=== PATIENT | male | born 1965 | race American Indian/Alaskan Native ===

== ENCOUNTER 2016-08-20 12:53 | Inpatient (IN) | payer MEDICARE, OTHER ==
--- NOTE | 2016-08-20 14:16 | Emergency Department Report ---
Chief Complaint: Pain General Stated Complaint: FLUID ON BOTH LEGS AND FEET Time Seen by Provider: 08/20/16 14:11 - HPI History of Present Illness: 51-year-old male with a past medical history of end-stage renal disease. Patient is hemodialysis on Wednesday and Wednesday. Patient went to dialysis had a full hemodialysis today without complaint was seen by the Dr. Jones today and was told to come to the ER after dialysis secondary for fluid on both legs and feet. Patient denies any pain or chest pain though he does admit to some shortness of breathing. He reports he is on nifedipine extended release 30 mg Sensipar. He reports that his weight this morning was 264 which is up by 4 pounds that he can recall. - Exam Vital Signs: Vital Signs 08/20/16 13:10 Temperature 98.2 F Pulse Rate 100 H Respiratory 22 Rate Blood Pressure 156/87 O2 Sat by Pulse 98 Oximetry Physical Exam: Patient's alert and oriented, he is in no acute distress he is tachycardic bilateral lower leg edema 3+ no tenderness to palpate respiratory clear to auscultation bilateral MSE screening note: Focused history and physical exam performed. Due to findings the following was ordered: CBC CMP PT PTT chest x-ray ordered ED Disposition for MSE Condition: Stable
[2016-08-20 14:35] LABS: Hematocrit 34.4 % (35.5-45.6); Hemoglobin 10.7 gm/dl (11.8-15.2); Mean Corpuscular HGB Conc 31 % (32-34); Mean Corpuscular Hemoglobin 24 pg (28-32); Mean Corpuscular Volume 77 fl (84-94); Platelet Count 164 K/mm3 (140-440); Red Blood Count 4.44 M/mm3 (3.65-5.03); Red Cell Distribution Width 18.5 % (13.2-15.2); White Blood Count 6.6 K/mm3 (4.5-11.0)
[2016-08-20 14:45] LABS: INR 1.24 (0.87-1.13)
[2016-08-20 14:46] LABS: Partial Thromboplastin Time 33.8 Sec. (24.2-36.6)
[2016-08-20 15:00] LABS: Albumin 3.5 g/dL (3.9-5); Albumin/Globulin Ratio 1.1 %; BUN/Creatinine Ratio 3.52; Bilirubin,Total 0.7 mg/dL (0.1-1.2); Calcium 8.9 mg/dL (8.4-10.2); Total Protein 6.8 g/dL (6.3-8.2)
[2016-08-20 15:01] LABS: Chloride 96.8 mmol/L (98-107); Potassium 4.3 mmol/L (3.6-5.0)
--- NOTE | 2016-08-20 15:46 | XRay Report ---
PA and lateral chest: The lungs are hypoventilated. The heart is probably normal in size considering the poor degree of inspiratory effort. There is mild blunting at the right costophrenic angle. The right major fissure is slightly thickened. There is some question concerning mild vascular congestion. I have no prior study for comparison. Impression: The findings raise suspicion of mild congestive changes and possible small right effusion or atelectasis.
--- NOTE | 2016-08-20 21:05 | Emergency Department Report ---
ED General Adult HPI - General Chief complaint: Pain General Stated complaint: FLUID ON BOTH LEGS AND FEET Time Seen by Provider: 08/20/16 14:11 Source: patient Mode of arrival: Ambulatory Limitations: No Limitations - History of Present Illness Initial comments: Patient is a 51-year-old male with history of hypertension, diabetes, end-stage renal disease on dialysis Wednesday with last dialysis earlier today sent in by his manager transmission Dr. Nixon because patient has bilateral lower extremity edema 2 days. Patient has never had these symptoms in the past. Has occasional shortness of breath but denies any orthopnea or chest pain. Denies any leg pain to either leg. Severity scale (0 -10): 4 - Related Data Home Medications Medication Instructions Recorded Confirmed Last Taken NIFEdipine [Nifedipine ER] 30 mg PO QDAY 08/20/16 08/20/16 08/20/16 Sevelamer Carbonate [Renvela] 800 mg PO TIDWM 08/20/16 08/20/16 08/20/16 Allergies Allergy/AdvReac Type Severity Reaction Status Date / Time No Known Allergies Allergy Verified 01/09/14 08:02 ED Review of Systems ROS: Stated complaint: FLUID ON BOTH LEGS AND FEET Other details as noted in HPI Comment: All other systems reviewed and negative Constitutional: denies: fever, weakness Respiratory: shortness of breath, SOB with exertion. denies: cough Cardiovascular: denies: chest pain, palpitations Gastrointestinal: denies: abdominal pain Skin: denies: rash Neurological: denies: headache Psychiatric: denies: anxiety ED Past Medical Hx - Past Medical History Previous Medical History?: Yes Hx Hypertension: Yes Hx Heart Attack/AMI: No Hx Diabetes: Yes (hx diabetes - not currently) Hx Liver Disease: No Hx Renal Disease: Yes Hx Sickle Cell Disease: No Hx Seizures: No Hx Asthma: No Hx COPD: No Hx Dementia: No Hx HIV: No - Surgical History Past Surgical History?: Yes Hx Pacemaker: No Hx Internal Defibrillator: No Additional Surgical History: Right arm fistula - Social History Smoking Status: Never Smoker Substance Use Type: Prescribed - Medications Home Medications: Home Medications Medication Instructions Recorded Confirmed Last Taken Type NIFEdipine [Nifedipine ER] 30 mg PO QDAY 08/20/16 08/20/16 08/20/16 History Sevelamer Carbonate [Renvela] 800 mg PO TIDWM 08/20/16 08/20/16 08/20/16 History ED Physical Exam - General Limitations: No Limitations General appearance: alert - Head Head exam: Present: atraumatic - Eye Eye exam: Present: normal appearance - ENT ENT exam: Present: normal exam - Respiratory Respiratory exam: Present: normal lung sounds bilaterally. Absent: respiratory distress - Cardiovascular Cardiovascular Exam: Present: regular rate, normal heart sounds - GI/Abdominal GI/Abdominal exam: Present: soft. Absent: distended, tenderness - Extremities Exam Extremities exam: Present: pedal edema - Neurological Exam Neurological exam: Present: altered, oriented X3 - Psychiatric Psychiatric exam: Present: normal affect ED Course Vital Signs 08/20/16 08/20/16 08/20/16 13:10 17:05 18:10 Temperature 98.2 F 98.6 F Pulse Rate 100 H 90 Respiratory 22 16 Rate Blood Pressure 156/87 151/95 156/87 Blood Pressure [Left] O2 Sat by Pulse 98 98 Oximetry 08/20/16 08/20/16 08/20/16 18:13 19:01 19:14 Temperature Pulse Rate 95 H 93 H Respiratory 18 19 Rate Blood Pressure 133/72 133/72 Blood Pressure 156/87 [Left] O2 Sat by Pulse 95 Oximetry 08/20/16 08/20/16 08/20/16 20:00 20:30 21:00 Temperature Pulse Rate 88 91 H Respiratory 15 12 Rate Blood Pressure 137/81 137/81 145/90 Blood Pressure [Left] O2 Sat by Pulse Oximetry 08/20/16 08/20/16 08/20/16 21:30 22:00 22:30 Temperature Pulse Rate 90 93 H 92 H Respiratory 12 12 25 H Rate Blood Pressure 137/81 137/81 146/92 Blood Pressure [Left] O2 Sat by Pulse Oximetry 08/20/16 08/20/16 08/21/16 23:00 23:40 00:00 Temperature Pulse Rate 90 101 H 96 H Respiratory 19 18 17 Rate Blood Pressure 145/83 145/83 161/119 Blood Pressure [Left] O2 Sat by Pulse Oximetry 08/21/16 08/21/16 00:31 01:30 Temperature 98 F Pulse Rate 93 H 85 Respiratory 25 H 18 Rate Blood Pressure 145/83 Blood Pressure 145/83 [Left] O2 Sat by Pulse 98 Oximetry - Reevaluation(s) Reevaluation #1: 08/20/16 21:[address] Nixon about the patient. Per Dr. Nixon patient's phosphorus is low, he was unwilling to be dialyzed enough to remove the significant amount of fluid and he is concerned that he has developed heart failure. He recommends admitting the patient to the hospital for further evaluation. ED Medical Decision Making - Lab Data Result diagrams: 08/20/16 14:21 08/20/16 14:21 - Medical Decision Making Possible new onset CHF labs, CXR preordered labs show elevated bnp, troponin added troponin mildly positive, may be due to CHF or renal failure (no prior results) or nstemi. ekg shows nsr without st-changes Critical care attestation.: If time is entered above; I have spent that time in minutes in the direct care of this critically ill patient, excluding procedure time. ED Disposition Clinical Impression: ESRD (end stage renal disease) CHF (congestive heart failure) Qualifiers: Congestive heart failure type: unspecified congestive heart failure type Congestive heart failure chronicity: acute Qualified Code(s): I50.9 - Heart failure, unspecified Disposition: OP ADMITTED IP TO THIS HOSP Is pt being admited?: Yes Does the pt Need Aspirin: No Condition: Serious Time of Disposition: 23:04 (Transitioned care to Dr. Deluna)
[2016-08-20] MEDS ORDERED: BABY ASPIRIN PO ONE (22:05)
--- NOTE | 2016-08-21 00:18 | History and Physical Report ---
History of Present Illness Date of examination: 08/21/16 History of present illness: 51-year-old man with a history of end-stage renal disease on dialysis Wednesday, , Wednesday, hypertension diabetes comes emergency room with complaints of increasing lower extremity edema and shortness of breath, dyspnea on exertion no PND or orthopnea Patient denies chest pain, palpitation, cough, abdominal pain, hematochezia, dysuria, frequency, focal weakness, dysarthria, fever chills, polydipsia polyuria, hot or cold intolerance, easy bruisability, or rash or bleeding from mucosal membrane, rhinorrhea, epistaxis, earache, tinnitus, blurry vision, eye discharge, anxiety, depression. Other review of systems negative PAST SURGICAL HISTORY: AV fistula SOCIAL HISTORY: Denies alcohol, tobacco, drugs FAMILY HISTORY: Hypertension Medications and Allergies Allergies Allergy/AdvReac Type Severity Reaction Status Date / Time No Known Allergies Allergy Verified 01/09/14 08:02 Home Medications Medication Instructions Recorded Confirmed Last Taken Type NIFEdipine [Nifedipine ER] 30 mg PO QDAY 08/20/16 08/20/16 08/20/16 History Sevelamer Carbonate [Renvela] 800 mg PO TIDWM 08/20/16 08/20/16 08/20/16 History Active Meds: Active Medications Nifedipine (Procardia Xl) 30 mg PO QDAY ABIGAIL Sevelamer Carbonate (Renvela) 800 mg PO TIDWM [facility] Exam - Physical Exam Narrative exam: Gen. appearance: Patient lying in bed, no apparent distress HEENT: Normocephalic, atraumatic, pupils equally round and reactive to light, extraocular movement intact, and no sclericterus,. No JVD or thyromegaly or nodule,neck supple, no carotid bruit ,mucous membranes moist, no exudate or erythema Heart: S1, S2, regular rate and rhythm Lungs: Clear to auscultation bilaterally, breathing comfortable Abdomen: Positive bowel sounds, nontender, nondistended, no organomegaly Extremity:3+ edema, no cyanosis, clubbing Skin: No rash, nodules, warm, dry Neuro: Oriented 3, cranial nerves II-12 intact, speech is fluent, motor and sensory intact - Constitutional Vitals: Temp Pulse Resp BP Pulse Ox 98.6 F 93 H 19 133/72 95 08/20/16 17:05 08/20/16 19:14 08/20/16 19:14 08/20/16 19:14 08/20/16 18:13 Results - Labs CBC & Chem 7: 08/20/16 14:21 08/20/16 14:21 Labs: Abnormal lab results 08/20/16 08/20/16 08/20/16 Range/Units 14:21 14:21 14:21 Hgb 10.7 L (11.8-15.2) gm/dl Hct 34.4 L (35.5-45.6) % MCV 77 L (84-94) fl MCH 24 L (28-32) pg MCHC 31 L (32-34) % RDW 18.5 H (13.2-15.2) % PT 15.5 H (12.2-14.9) Sec. INR 1.24 H (0.87-1.13) Chloride 96.8 L (98-107) mmol/L Carbon Dioxide 32 H (22-30) mmol/L BUN 25 H (9-20) mg/dL Creatinine 7.1 H (0.8-1.5) mg/dL Glucose 108 H (75-100) mg/dL Troponin T (0.00-0.029) ng/mL NT-Pro-B Natriuret Pep 2322 H (0-900) pg/mL Albumin 3.5 L (3.9-5) g/dL 08/20/16 Range/Units 21:09 Hgb (11.8-15.2) gm/dl Hct (35.5-45.6) % MCV (84-94) fl MCH (28-32) pg MCHC (32-34) % RDW (13.2-15.2) % PT (12.2-14.9) Sec. INR (0.87-1.13) Chloride (98-107) mmol/L Carbon Dioxide (22-30) mmol/L BUN (9-20) mg/dL Creatinine (0.8-1.5) mg/dL Glucose (75-100) mg/dL Troponin T 0.108 H* (0.00-0.029) ng/mL NT-Pro-B Natriuret Pep (0-900) pg/mL Albumin (3.9-5) g/dL - Imaging and Cardiology EKG: image reviewed ([id number],[id number], read by me) Chest x-ray: image reviewed Assessment and Plan Sit CHF, probably diastolic dysfunction Hypertension Diabetes of 2 End-stage renal disease on dialysis Admits medicine Start IV Lasix, start beta mikki, JULIETH inhibitor, aspirin Check cardiac enzymes, echo, consult cardiology Monitor I's and O's, daily weights Consult renal for dialysis Check fingersticks initiate insulin sliding scale Continue outpatient medication, start DVT prophylaxis
--- NOTE | 2016-08-21 01:39 | Admit Criteria Form ---
Admission Criteria Documentation: HEART FAILURE: OBSERVATION CARE USE THIS FORM ONLY WHEN INPATIENT ADMISSION CRITERIA ARE NOT MET. (Place "X" for any and all applicable criteria): Placement for observation care is indicated for a patient with ANY ONE of the following (1)(2)(3)(4)(5)(6) [X ]I. Signs or symptoms inadequately controlled by outpatient or emergency department treatment as indicated by persistence of ANY ONE of the following: [ ]a) Pulmonary edema [ ]b) Oxygen saturation less than 90% on room air or baseline supplemental oxygen [ ]c) Tachypnea [ X]d) Dyspnea [ ]e) Syncope [ ]f) Cognitive impairment (new) [ ]II. Change in renal function (reduction of more than 25% in estimated glomerular filtration rate from baseline) [ ]III. New-onset acute heart failure for which immediate outpatient etiologic examination is needed that cannot be done in required time frame [ ]IV. Other observation care needs. ( Also refer to General Criteria: Observation Care Form as appropriate) The original [employer] content created by [employer] has been revised. The portions of the content which have been revised are identified through the use of italic text, and [facility] has neither reviewed nor approved the modified material. All other unmodified content is copyright [facility]. Please see references footnoted in the original [facility] [employer] edition 2015 Admission Criteria Met: Pending
[2016-08-21] MEDS ORDERED: AMBIEN PO PRN (02:02)
[2016-08-21] MEDS ORDERED: PERCOCET 5/325 PO PRN (02:02)
[2016-08-21] MEDS ORDERED: DULCOLAX PR PRN (02:02)
[2016-08-21] MEDS ORDERED: TYLENOL PO PRN (02:02)
[2016-08-21] MEDS ORDERED: D50W (25GM) IV PRN (02:02)
[2016-08-21] MEDS ORDERED: ZOFRAN IV PRN (02:02)
--- NOTE | 2016-08-21 06:05 | Admit Criteria Form ---
Admission Criteria Documentation: HEART FAILURE: COMMON COMPLICATIONS Clinical Indications for Inpatient Care (Place 'X' for any and all applicable criteria): Ongoing inpatient care may be indicated for heart failure with ANY ONE of the following (1)(2)(3)(4)(5): [ ]I. Ongoing need for care for primary condition requiring frequent therapy adjustments because of changes in cardiac function (eg, drug dosage changes for drugs that are renally metabolized) [ ]II. New-onset heart failure [ ]III. Heart failure with decreased urine output not responsive to attempts to optimize volume status [ ]IV. Acute cardiac ischemia causing or associated with failure [X ]V. Complications of heart failure, including ANY ONE of the following: [ ]a) Pericardial effusion [ ]b) Symptomatic pleural effusion [ ]c) O2 saturation <90% or PO2 < 60 mm Hg (8.0 kPa) on room air or require baseline supplemental O2 [ ]d) Tachypnea [X ]e) Dyspnea [ ]f) Syncope [ ]g) Change in mental status [ ]h) Acute renal insufficiency that is severe (reduction of more than 50% in estimated glomerular filtration rate from baseline) or progressive reduction of more than 25% in estimated glomerular filtration rate from baseline, with creatinine continuing to rise) [ ]i) Hemodynamic instability [ ]j) Anasarca [ ]k) Clinically significant metabolic abnormalities due to heart failure (eg, new-onset metabolic acidosis) Extended stay beyond goal length of stay for primary condition may be needed until ALL of the following are present(1)(3): [ ]a) Stable and effective diuretic regimen established (or patient on stable dialysis regimen if in chronic renal failure) [ ]b) Breathing comfortably at rest [ ]c) Saturation of arterial oxygen greater than 90% or at acceptable baseline [ ]d) Pulmonary edema absent or improved [ ]e) Hemodynamic stability [ ]f) Volume status acceptable on oral medication [ ]g) Peripheral or sacral edema absent or improved [ ]h) Renal function stable and manageable at a lower level of care [ ]i) Complications (eg, pleural effusion) resolved or manageable at a lower level of care [ ]j) Patient or caregiver has received written discharge instructions or educational material addressing activity level, diet, discharge medications, follow-up appointment, weight monitoring, and what to do if symptoms worsen The original [facility] content created by [employer] has been revised. The portions of the content which have been revised are identified through the use of italic text or in bold, and [facility] has neither reviewed nor approved the modified material.All other unmodified content is copyright [facility]. Please see references footnoted in the original [facility] edition 2016 Admission Criteria Met: Yes
[2016-08-21] MEDS: LASIX IV SCH ×2 (06:08→17:51)
[2016-08-21 06:55] LABS: Creatine Kinase MB 2.4 ng/mL (0.0-4.0)
[2016-08-21] MEDS: RENVELA PO SCH ×3 (08:48→16:42)
[2016-08-21] MEDS: LOVENOX SUB-Q SCH (09:14)
[2016-08-21] MEDS: ZESTRIL PO SCH (09:15)
[2016-08-21] MEDS: BABY ASPIRIN PO SCH (09:15)
[2016-08-21] MEDS: COREG PO SCH ×2 (09:15→21:37)
[2016-08-21] MEDS: NOVOLOG SUB-Q SCH ×4 (09:17→21:38)
--- NOTE | 2016-08-21 09:31 | Consultation ---
History of Present Illness - Reason for Consult Consult date: 08/21/16 (consult dictated) Medications and Allergies Allergies Allergy/AdvReac Type Severity Reaction Status Date / Time No Known Allergies Allergy Verified 01/09/14 08:02 Home Medications Medication Instructions Recorded Confirmed Last Taken Type NIFEdipine [Nifedipine ER] 30 mg PO QDAY 08/20/16 08/20/16 08/20/16 History Sevelamer Carbonate [Renvela] 800 mg PO TIDWM 08/20/16 08/20/16 08/20/16 History Active Meds: Active Medications Acetaminophen (Tylenol) 650 mg PO Q4H PRN PRN Reason: Pain MILD(1-3)/Fever >100.5/ROJAS Aspirin (Baby Aspirin) 81 mg PO QDAY [facility] Last Admin: 08/21/16 09:15 Dose: 81 mg Bisacodyl (Dulcolax) 10 mg SD QDAY PRN PRN Reason: Constipation unrelieved by MOM Carvedilol (Coreg) 3.125 mg PO BID [facility] Last Admin: 08/21/16 09:15 Dose: 3.125 mg Dextrose (D50w (25gm)) 50 ml IV PRN PRN PRN Reason: Hypoglycemia Enoxaparin Sodium (Lovenox) 30 mg SUB-Q QDAY [facility] Last Admin: 08/21/16 09:14 Dose: 30 mg Furosemide (Lasix) 40 mg IV BID@0600,1800 [facility] Last Admin: 08/21/16 06:08 Dose: 40 mg Insulin Aspart (Novolog) 0 units SUB-Q ACHS [facility] PRN Reason: Protocol Last Admin: 08/21/16 09:17 Dose: Not Given Lisinopril (Zestril) 2.5 mg PO QDAY [facility] Last Admin: 08/21/16 09:15 Dose: 2.5 mg Ondansetron HCl (Zofran) 4 mg IV Q8H PRN PRN Reason: N/V unrelieved by Reglan Oxycodone/Acetaminophen (Percocet 5/325) 1 tab PO Q6H PRN PRN Reason: Pain, Moderate (4-6) Sevelamer Carbonate (Renvela) 800 mg PO TIDWM [facility] Last Admin: 08/21/16 08:48 Dose: 800 mg Zolpidem Tartrate (Ambien) 5 mg PO QHS PRN PRN Reason: Insomnia Exam - Constitutional Vitals: Temp Pulse Resp BP Pulse Ox 98.7 F 91 H 18 161/94 100 08/21/16 08:28 08/21/16 09:15 08/21/16 08:28 08/21/16 09:15 08/21/16 08:28 Results - Labs CBC & Chem 7: 08/20/16 14:21 08/20/16 14:21 Labs: Abnormal lab results 08/21/16 Range/Units 05:20 Total Creatine Kinase 274 H (55-170) units/L Troponin T 0.101 H* (0.00-0.029) ng/mL
[2016-08-21] MEDS ORDERED: PROCARDIA XL PO SCH (10:00)
[2016-08-21] MEDS ORDERED: HEPARIN IV PRN (11:14)
[2016-08-21] MEDS ORDERED: NACL 0.9% 1000 ML 100 ML IV PRN ×2 (11:14→11:21)
--- NOTE | 2016-08-21 11:31 | Consultation ---
History of Present Illness Consult date: 08/21/16 Consult reason: congestive heart failure History of present illness: Patient is a 51yr old male with a history of hypertension, end stage renal disease on hemodialysis who presented to this hospital with complaints of shortness of breath and lower extremity edema. Patient reports shortness of breath had been intermittent for a few weeks but noted lower extremity edema 2 days ago. Admits to compliance with hemodialysis. He denies chest pain. There is no prior cardiac history or prior workup. Chest x-ray reports mild vascular congestion. Cardiac consultation requested for CHF evaluation. Medications and Allergies Allergies Allergy/AdvReac Type Severity Reaction Status Date / Time No Known Allergies Allergy Verified 01/09/14 08:02 Home Medications Medication Instructions Recorded Confirmed Last Taken Type NIFEdipine [Nifedipine ER] 30 mg PO QDAY 08/20/16 08/20/16 08/20/16 History Sevelamer Carbonate [Renvela] 800 mg PO TIDWM 08/20/16 08/20/16 08/20/16 History Active Meds: Active Medications Acetaminophen (Tylenol) 650 mg PO Q4H PRN PRN Reason: Pain MILD(1-3)/Fever >100.5/ROJAS Aspirin (Baby Aspirin) 81 mg PO QDAY [facility] Last Admin: 08/21/16 09:15 Dose: 81 mg Bisacodyl (Dulcolax) 10 mg IN QDAY PRN PRN Reason: Constipation unrelieved by MOM Carvedilol (Coreg) 3.125 mg PO BID [facility] Last Admin: 08/21/16 09:15 Dose: 3.125 mg Dextrose (D50w (25gm)) 50 ml IV PRN PRN PRN Reason: Hypoglycemia Enoxaparin Sodium (Lovenox) 30 mg SUB-Q QDAY [facility] Last Admin: 08/21/16 09:14 Dose: 30 mg Furosemide (Lasix) 40 mg IV BID@0600,1800 [facility] Last Admin: 08/21/16 06:08 Dose: 40 mg Heparin Sodium (Porcine) (Heparin) 5,000 unit IV TOMMIE PRN PRN Reason: hemodialysis Sodium Chloride (Nacl 0.9% 1000 Ml) 100 mls @ 999 mls/hr IV TOMMIE PRN PRN Reason: Hypotension Sodium Chloride (Nacl 0.9% 1000 Ml) 100 mls @ 999 mls/hr IV TOMMIE PRN PRN Reason: Hypotension Insulin Aspart (Novolog) 0 units SUB-Q ACHS [facility] PRN Reason: Protocol Last Admin: 08/21/16 09:17 Dose: Not Given Lisinopril (Zestril) 2.5 mg PO QDAY [facility] Last Admin: 08/21/16 09:15 Dose: 2.5 mg Ondansetron HCl (Zofran) 4 mg IV Q8H PRN PRN Reason: N/V unrelieved by Reglan Oxycodone/Acetaminophen (Percocet 5/325) 1 tab PO Q6H PRN PRN Reason: Pain, Moderate (4-6) Sevelamer Carbonate (Renvela) 800 mg PO TIDWM [facility] Last Admin: 08/21/16 08:48 Dose: 800 mg Zolpidem Tartrate (Ambien) 5 mg PO QHS PRN PRN Reason: Insomnia Physical Examination Vital Signs Temp Pulse Resp BP Pulse Ox 98.2 F 100 H 22 156/87 98 08/20/16 13:10 08/20/16 13:10 08/20/16 13:10 08/20/16 13:10 08/20/16 13:10 General appearance: no acute distress HEENT: Positive: PERRL Neck: Positive: trachea midline Cardiac: Positive: Reg Rate and Rhythm Lungs: Positive: Decreased Breath Sounds Neuro: Positive: Grossly Intact Extremities: Present: +2 Edema Results 08/20/16 14:21 08/20/16 14:21 Cardiac Enzymes 08/21/16 Range/Units 05:20 CK-MB (CK-2) 2.4 (0.0-4.0) ng/mL EKG interpretations - Telemetry EKG Rhythm: Sinus Rhythm Assessment and Plan Volume overload ESRD on HD Hypertension Will get an echocardiogram for LVEF assessment. Continue HD for volume removal.
--- NOTE | 2016-08-21 12:06 | Progress Note ---
Assessment and Plan 1. Congestive heart failure: Echo pending. Continue with IV Lasix, beta mikki and johanna inhibitor. 2. Hypertension: Continue with antihypertensive meds. 3. Diabetes mellitus: Continue with Accu-Chek every before meals and at bedtime , sliding scale insulin, 2000 ADA diet 4. End-stage renal disease on hemodialysis. 5. DVT prophylaxis: Continue with Lovenox 40 mg subcutaneous daily Subjective Date of service: 08/21/16 Interval history: SOB improving. Objective - Constitutional Vitals: Vital Signs - 12hr 08/21/16 08/21/16 08/21/16 00:31 01:30 03:16 Temperature 98 F 98.2 F Pulse Rate 93 H 85 Pulse Rate [ Left] Pulse Rate [ 97 H Right] Respiratory 25 H 18 18 Rate Blood Pressure 145/83 Blood Pressure [Left Arm] Blood Pressure 145/83 [Left] Blood Pressure 168/91 [Right Arm] O2 Sat by Pulse 98 100 Oximetry 08/21/16 08/21/16 08/21/16 04:00 08:28 09:15 Temperature 98.3 F 98.7 F Pulse Rate 91 H Pulse Rate [ 91 H Left] Pulse Rate [ 92 H Right] Respiratory 18 18 Rate Blood Pressure 161/94 Blood Pressure 161/94 [Left Arm] Blood Pressure [Left] Blood Pressure 161/87 [Right Arm] O2 Sat by Pulse 98 100 Oximetry 08/21/16 10:00 Temperature Pulse Rate Pulse Rate [ 92 H Left] Pulse Rate [ Right] Respiratory Rate Blood Pressure Blood Pressure [Left Arm] Blood Pressure [Left] Blood Pressure [Right Arm] O2 Sat by Pulse Oximetry General appearance: Present: no acute distress, well-nourished - EENT Eyes: PERRL, EOM intact ENT: hearing intact, clear oral mucosa Ears: bilateral: normal - Neck Neck: supple, normal ROM - Respiratory Respiratory effort: normal Respiratory: bilateral: CTA - Breasts Breasts: normal - Cardiovascular Rhythm: regular Heart Sounds: Present: S1 & S2. Absent: gallop, rub Extremities: pulses intact, No edema, normal color, Full ROM - Gastrointestinal General gastrointestinal: Present: soft, non-tender, non-distended, normal bowel sounds - Genitourinary Male genitourinary: normal - Integumentary Integumentary: clear, warm, dry - Musculoskeletal Musculoskeletal: 1, strength equal bilaterally - Neurologic Neurologic: moves all extremities - Psychiatric Psychiatric: memory intact, appropriate mood/affect, intact judgment & insight - Labs CBC & Chem 7: 08/20/16 14:21 08/20/16 14:21 Labs: Abnormal lab results 08/21/16 Range/Units 05:20 Total Creatine Kinase 274 H (55-170) units/L Troponin T 0.101 H* (0.00-0.029) ng/mL
--- NOTE | 2016-08-21 12:49 | Echocardiography Report ---
Transthoracic Echocardiogram BP: 161/87 Conclusions *The left ventricular chamber size is mildly dilated. *Mild concentric left ventricular hypertrophy is observed. *Severe global hypokinesis of the left ventricle is observed. *The estimated ejection fraction is 20-25%. *The left ventricular diastolic filling pattern is restrictive. *The left atrium is severely dilated. *The right ventricle is mildly dilated. *The right atrium is moderately dilated. *Mild aortic cusp sclerosis is present. *Mitral valve leaflet mobility is moderately restricted. *There is moderate to severe mitral regurgitation. *The mitral regurgitant jet is posteriorly directed. *There is moderate to severe tricuspid regurgitation. *The tricuspid regurgitant jet is eccentric. *The right ventricular systolic pressure is calculated at 53 mmHg. *There is mild pulmonic regurgitation. *The inferior vena cava is dilated. Findings Left Ventricle: The left ventricular chamber size is mildly dilated. Mild concentric left ventricular hypertrophy is observed. Severe global hypokinesis of the left ventricle is observed. The estimated ejection fraction is 20-25%. The left ventricular diastolic filling pattern is restrictive. Left Atrium: The left atrium is severely dilated. Right Ventricle: The right ventricle is mildly dilated. The right ventricular global systolic function is normal. Right Atrium: The right atrium is moderately dilated. Aortic Valve: Mild aortic cusp sclerosis is present. There is no evidence of aortic regurgitation. There is no evidence of aortic stenosis. Mitral Valve: Mitral valve leaflet mobility is moderately restricted. There is moderate to severe mitral regurgitation. The mitral regurgitant jet is posteriorly directed. Tricuspid Valve: There is moderate to severe tricuspid regurgitation. The tricuspid regurgitant jet is eccentric. The right ventricular systolic pressure is calculated at 53 mmHg. There is evidence of moderate pulmonary hypertension. Pulmonic Valve: There is mild pulmonic regurgitation. Pericardium: There is no pericardial effusion. Aorta: There is no dilatation of the aortic root. Pulmonary Artery: The main pulmonary artery is mildly dilated. Venous: The inferior vena cava is dilated. Measurements Chambers MM Name Value Normal Range IVSd (MM) 1.13 cm (0.6 - 1.1) LVPWd (MM) 1.15 cm (0.6 - 1.1) IVS:LVPW ratio 0.98 ratio - LVIDd (MM) 5.81 cm (3.7 - 5.6) LVIDs (MM) 5.06 cm (2 - 2.8) LV FS (Teichholz) (MM) 12.9 % - LV FS (cube) (MM) 12.9 % - EF Teichholz (MM) 26.9 % - Ao root diameter (MM) 3.4 cm (2 - 3.7) LA dimension (AP) MM 5.4 cm (1.9 - 4) LA:Ao ratio (MM) 1.59 ratio - AV cusp separation (MM) 2.4 cm (1.5 - 2.6) Chambers 2D Name Value Normal Range IVSd (2D) 1.17 cm (0.6 - 1.1) LVPWd (2D) 1.38 cm (0.6 - 1.1) IVS:LVPW ratio (2D) 0.85 ratio - LVIDd (2D) 5.52 cm (3.7 - 5.6) LVIDs (2D) 4.35 cm (2 - 3.8) LV FS (Teichholz) (2D) 21.2 % - LV FS (cube) (2D) 21.2 % - EF Teichholz (2D) 42.7 % - Ao root diameter (2D) 3.3 cm (2 - 3.7) LA dimension (AP) 2D 5 cm (1.9 - 4) LA:Ao ratio (2D) 1.52 ratio - Volumes/Mass Name Value Normal Range LA ESV SP 4CH (MOD) 72 ml - LV EDV SP 4CH (MOD) 104 ml - LV ESV SP 4CH (MOD) 67 ml - EF SP 4CH (MOD) 36 % - Diastolic/Systolic Function Name Value Normal Range MV E-wave Vmax 1.3 m/sec - MV deceleration time 197 msec - LV septal e' Vmax 0.06 m/sec - LV E:e' septal ratio 20.8 ratio - Aortic Valve Name Value Normal Range AV VTI 19.4 cm - AV mean gradient 4 mmHg - LVOT diameter 2.1 cm - LVOT Vmax 0.83 m/sec - LVOT peak gradient 3 mmHg - Mitral Valve Name Value Normal Range MR Vmax 5.02 m/sec - MR VTI 162 cm - Tricuspid Valve Name Value Normal Range TR Vmax 3.07 m/sec - TR peak gradient 38 mmHg - RVSP 53 mmHg - Pulmonic Valve/Qp:Qs Name Value Normal Range PV Vmax 0.69 m/sec - PV peak gradient 2 mmHg - IL end-diastolic Vmax 1.46 m/sec - PV acceleration time 130 msec -
[2016-08-21 15:02] LABS: Creatine Kinase MB 2.6 ng/mL (0.0-4.0)
--- NOTE | 2016-08-22 00:25 | Consultation ---
REASON FOR CONSULTATION: Renal failure. HISTORY OF PRESENT ILLNESS: This 51-year-old -[place] male with end-stage renal disease, hypertension, was brought to the Emergency Room for increasing swelling of his lower extremities and shortness of breath. The patient denies chest pain, cold, cough, or sore throat. The patient goes to [facility] on Wednesday, , Wednesday. Discussed with Dr. Nixon, who advised the patient to come for extra dialysis treatment today, but the patient decided to come to the Emergency Room. The patient was reported to be noncompliant with his dialysis treatments and with fluid overload and significant weight gains between dialysis treatments. PAST MEDICAL HISTORY: History of hypertension and end-stage renal disease, on hemodialysis for the past 3 years. PERSONAL HISTORY: Denies smoking, alcohol, or drug abuse. FAMILY HISTORY: No family history of kidney failure. ALLERGIES: None. HOME MEDICATIONS: Nifedipine ER 30 mg once a day, Renvela with meals. ALLERGIES: None. REVIEW OF SYSTEMS: Complaints of swelling of the legs, more prominent lately for the past few days. The patient gets shortness of breath on exertion. Denies chest pain. Denies fever or chills. Denies difficulty swallowing. Denies nausea, vomiting, or diarrhea. Denies dysuria or hematuria. Other review of systems reviewed and negative. PHYSICAL EXAMINATION: GENERAL: The patient is alert, oriented x 3, well-developed male. VITAL SIGNS: Blood pressure 155/87, pulse 81, afebrile. HEENT: Eyes, pupils reactive, conjunctivae pale. Oral mucosa and tongue are moist. Lips noncyanotic. NECK: No JVD. No thyroid enlargement. LUNGS: Diminished breath sounds in bases. HEART: S1, S2 regular. No pericardial rub. ABDOMEN: Soft, bowel sounds present. Nontender. No liver or spleen palpable. EXTREMITIES: 3+ edema. Right upper arm AV access has bruit and thrill. LABORATORY DATA: Sodium 141, potassium 4.3, chloride 96, CO2 of 32, BUN 25, creatinine 7.1, glucose 108, calcium 8.9. BNP 2322. Albumin 3.5, troponin 0.108. WBC 6.6, hemoglobin 10.7, hematocrit 34.4, MCV 77, platelets 164. ASSESSMENT AND PLAN: 1. Fluid overload. 2. Hypertension. 3. Anemia. Check echocardiogram to assess left ventricular ejection fraction. The patient was advised to have extra dialysis treatment for hemodiafiltration for the fluid removal, informed the dialysis nurse for hemodiafiltration today. The patient to have regular dialysis schedule on Wednesday, , Wednesday. Advised on fluid restriction and salt restriction. Thank you for the consultation. JOB# [id number] CHERY/NTS
[2016-08-22] MEDS: LASIX IV SCH (05:49)
[2016-08-22 06:38] LABS: Basophils % (Auto) 1.4 % (0.0-1.8); Eosinophils % (Auto) 3.7 % (0.0-4.3); Mean Corpuscular HGB Conc 30 % (32-34); Platelet Count 151 K/mm3 (140-440); Red Blood Count 4.41 M/mm3 (3.65-5.03); Red Cell Distribution Width 19.2 % (13.2-15.2); White Blood Count 5.2 K/mm3 (4.5-11.0)
[2016-08-22 06:40] LABS: Hemoglobin 10.7 gm/dl (11.8-15.2); Mean Corpuscular Hemoglobin 24 pg (28-32)
[2016-08-22 06:42] LABS: Mean Corpuscular Volume 79 fl (84-94)
[2016-08-22 06:52] LABS: BUN/Creatinine Ratio 3.33; Calcium 9.1 mg/dL (8.4-10.2); Chloride 98.3 mmol/L (98-107); Potassium 4.2 mmol/L (3.6-5.0)
[2016-08-22] MEDS: NOVOLOG SUB-Q SCH ×2 (07:38→12:42)
[2016-08-22] MEDS: RENVELA PO SCH ×2 (07:39→12:43)
[2016-08-22] MEDS ORDERED: LEXISCAN IV ONE ×2 (08:39→08:40)
[2016-08-22] MEDS: ZESTRIL PO SCH (10:59)
[2016-08-22] MEDS: COREG PO SCH (10:59)
[2016-08-22] MEDS: BABY ASPIRIN PO SCH (10:59)
[2016-08-22] MEDS: LOVENOX SUB-Q SCH (10:59)
--- NOTE | 2016-08-22 11:34 | Progress Note ---
Assessment and Plan Impression: * Congestive heart failure: * Hypertension: * Diabetes mellitus: End-stage renal disease on hemodialysis. * DVT prophylaxis: Plan: * hd q TTHSAT * strict i/os * uf with hd as tolerated * fluid restriction * renal diet * Subjective Date of service: 08/22/16 Principal diagnosis: esrd Interval history: resting well in bed today Objective - Exam Narrative Exam: General appearance: Present: no acute distress, well-nourished - EENT Eyes: PERRL, EOM intact ENT: hearing intact, clear oral mucosa Ears: bilateral: normal - Neck Neck: supple, normal ROM - Respiratory Respiratory effort: normal Respiratory: bilateral: CTA - Breasts Breasts: normal - Cardiovascular Rhythm: regular Heart Sounds: Present: S1 & S2. Absent: gallop, rub Extremities: pulses intact, No edema, normal color, Full ROM - Gastrointestinal General gastrointestinal: Present: soft, non-tender, non-distended, normal bowel sounds - Genitourinary Male genitourinary: normal - Integumentary Integumentary: clear, warm, dry - Musculoskeletal Musculoskeletal: 1, strength equal bilaterally - Neurologic Neurologic: moves all extremities - Psychiatric Psychiatric: memory intact, appropriate mood/affect, intact judgment & insight - Vital Signs Vital signs: Vital Signs - 12hr 08/22/16 08/22/16 00:00 04:00 Temperature 98.0 F 98.2 F Pulse Rate [ 84 86 Left] Respiratory 18 20 Rate Blood Pressure 131/75 150/88 [Left Arm] O2 Sat by Pulse 99 94 Oximetry - Lab 08/22/16 05:50 08/22/16 05:50 Most recent lab results Calcium 9.1 mg/dL (8.4-10.2) 08/22/16 05:50
--- NOTE | 2016-08-22 11:38 | Progress Note ---
Assessment and Plan 1. Congestive heart failure likely precipitated by fluid overload 2. End-stage renal disease 3. Essential hypertension Plan. Lexiscan thallium scan done today. Check echocardiogram. Fluid management as per the application software developer Subjective Date of service: 08/22/16 Interval history: No cardiac symptoms. Objective Vital Signs Temp Pulse Pulse Resp BP BP Pulse Ox 08/22/16 04:00 98.2 F 86 20 150/88 94 08/22/16 00:00 98.0 F 84 18 131/75 99 08/21/16 22:00 18 08/21/16 21:37 92 H 168/87 08/21/16 20:00 98.9 F 92 H 18 168/87 99 08/21/16 17:18 98.0 F 83 18 138/82 99 08/21/16 14:25 98.2 F 80 20 166/79 08/21/16 14:15 82 170/90 08/21/16 14:00 82 171/92 08/21/16 13:45 81 155/87 08/21/16 13:30 82 154/87 08/21/16 13:15 83 143/76 08/21/16 13:00 80 144/77 08/21/16 12:45 81 138/76 08/21/16 12:30 81 131/76 08/21/16 12:15 83 154/93 08/21/16 12:00 85 151/91 08/21/16 11:45 97.9 F 90 20 151/88 - Physical Examination General: Appears Well, No Apparent Distress HEENT: Positive: PERRL Neck: Positive: trachea midline Cardiac: Positive: Regular Rate, S1/S2, S3, Laterally Displaced Lungs: Positive: clear to auscultation, No Wheeze, Rales, Rhonchi Neuro: Positive: Grossly Intact Abdomen: Positive: Unremarkable /Rectal: Normal Prostate Extremities: Present: +1 Edema - Labs and Meds Cardiac Enzymes 08/21/16 Range/Units 11:00 CK-MB (CK-2) 2.6 (0.0-4.0) ng/mL CBC 08/22/16 Range/Units 05:50 WBC 5.2 (4.5-11.0) K/mm3 RBC 4.41 (3.65-5.03) M/mm3 Hgb 10.7 L (11.8-15.2) gm/dl Hct 36.0 (35.5-45.6) % Plt Count 151 (140-440) K/mm3 Lymph # 1.3 (1.2-5.4) K/mm3 [place] # 0.7 (0.0-0.8) K/mm3 Eos # 0.2 (0.0-0.4) K/mm3 Baso # 0.1 (0.0-0.1) K/mm3 Comprehensive Metabolic Panel 08/22/16 Range/Units 05:50 Sodium 142 (137-145) mmol/L Potassium 4.2 (3.6-5.0) mmol/L Chloride 98.3 (98-107) mmol/L Carbon Dioxide 30 (22-30) mmol/L BUN 29 H (9-20) mg/dL Creatinine 8.7 H (0.8-1.5) mg/dL Glucose 87 (75-100) mg/dL Calcium 9.1 (8.4-10.2) mg/dL - Imaging and Cardiology EKG: image reviewed (nsr,80, read by me) - Telemetry EKG Rhythm: Sinus Rhythm
--- NOTE | 2016-08-22 13:32 | Discharge Summary ---
Providers - Providers Date of Admission: 08/21/16 00:10 Date of discharge: 08/22/16 Attending physician: KENDRA OWEN 08/21/16 02:02 Consult to Physician [CONS] Routine Consulting Provider: ERIK AGUILAR Reason For Exam: hd Notified:: financial center manager pl call Primary care physician: KATIE COHEN Hospitalization Condition: Serious Hospital course: Discharge Diagnosis: 1. Congestive heart failure: Echo pending. Continue with IV Lasix, beta mikki and johanna inhibitor. 2. Hypertension: Continue with antihypertensive meds. 3. Diabetes mellitus: Continue home meds, 1999 ADA diet 4. End-stage renal disease on hemodialysis. Disposition: DISCHARGED TO HOME OR SELFCARE Time spent for discharge: 32 minutes Core Measure Documentation - Palliative Care Palliative Care/ Comfort Measures: Not Applicable - Core Measures Any of the following diagnoses?: none Exam - Physical Exam Narrative exam: General appearance: Present: no acute distress, well-nourished - EENT Eyes: PERRL, EOM intact ENT: hearing intact, clear oral mucosa Ears: bilateral: normal - Neck Neck: supple, normal ROM - Respiratory Respiratory effort: normal Respiratory: bilateral: CTA - Breasts Breasts: normal - Cardiovascular Rhythm: regular Heart Sounds: Present: S1 & S2. Absent: gallop, rub Extremities: pulses intact, No edema, normal color, Full ROM - Gastrointestinal General gastrointestinal: Present: soft, non-tender, non-distended, normal bowel sounds - Genitourinary Male genitourinary: normal - Integumentary Integumentary: clear, warm, dry - Musculoskeletal Musculoskeletal: 1, strength equal bilaterally - Neurologic Neurologic: moves all extremities - Psychiatric Psychiatric: memory intact, appropriate mood/affect, intact judgment & insight - Constitutional Vitals: Temp Pulse Resp BP Pulse Ox 98.0 F 72 20 141/104 94 08/22/16 10:40 08/22/16 13:00 08/22/16 10:40 08/22/16 13:00 08/22/16 04:00 Plan Activity: fall precautions Weight Bearing Status: Weight Bear as Tolerated Diet: diabetic, renal Follow up with: KATIE COHEN MD [Primary Care Provider] - 3-5 Days Prescriptions: Carvedilol [Coreg] 3.125 mg PO BID #60 tablet Furosemide [Lasix TAB] 40 mg PO QDAY #30 tablet AtorvaSTATin [Lipitor] 20 mg PO DAILY #30 tablet Lisinopril [Zestril TAB] 5 mg PO QDAY #30 tablet
[2016-08-22 15:16] VITALS: BP 180/99
--- NOTE | 2016-08-25 00:04 | Treadmill Report ---
THALLIUM STRESS TEST LEFT VENTRICLE: Left ventricle is mildly dilated. There is homogeneous uptake of the tracer in all segments, no significant defects identified. Gated SPECT analysis is not available. CONCLUSION: Evidence of a dilated left ventricle, with normal myocardial perfusion, no ischemic defects identified. Clinical correlation is recommended. Echocardiography is recommended for left ventricular chamber size and systolic function reassessement. JOB# [id number] CA/NTS
== END 2016-08-22 18:11 | disposition home or self-care (01) | DRG 291 ==
LOC: ED 12:53 → 4A 08-21 00:10
PROVIDERS: ADMIT Internal Medicine; ATTEND Internal Medicine
PROC: 5A1D60Z (ICD-10-PCS; principal; 2016-08-21)
DX: I13.2 Hypertensive heart and chronic kidney disease with heart failure and with stage 5 chronic kidney disease, or end stage renal disease (principal); N18.6 End stage renal disease; I42.9 Cardiomyopathy, unspecified; E11.22 Type 2 diabetes mellitus with diabetic chronic kidney disease; E87.70 Fluid overload, unspecified; D64.9 Anemia, unspecified; I50.9 Heart failure, unspecified; Z99.2 Dependence on renal dialysis; Z79.899 Other long term (current) drug therapy; Z82.49 Family history of ischemic heart disease and other diseases of the circulatory system
CPT/HCPCS: 36415; 71020; 78452; 80048; 80053; 80061; 82550; 82553; 82962; 83880; 84484; 85025; 85027; 85610; 85730; 93005; 93010; 93017; 93306; 99285; A9502; J1650; J1940; J2785; J7030

== ENCOUNTER 2016-12-18 06:46 | Day surgery (SDC) | payer MEDICARE ==
[2016-12-18 08:01] LABS: INR 1.17 (0.87-1.13)
[2016-12-18 08:04] LABS: Basophils % (Auto) 0.6 % (0.0-1.8); Eosinophils % (Auto) 2.6 % (0.0-4.3); Hematocrit 44.7 % (35.5-45.6); Mean Corpuscular HGB Conc 31 % (32-34); Mean Corpuscular Volume 81 fl (84-94); Platelet Count 152 K/mm3 (140-440); Red Blood Count 5.53 M/mm3 (3.65-5.03); Red Cell Distribution Width 19.3 % (13.2-15.2); White Blood Count 7.5 K/mm3 (4.5-11.0)
[2016-12-18 08:05] LABS: BUN/Creatinine Ratio 3.6; Calcium 8.7 mg/dL (8.4-10.2); Chloride 95.5 mmol/L (98-107); Potassium 4.9 mmol/L (3.6-5.0)
[2016-12-18 08:08] LABS: Mean Corpuscular Hemoglobin 25 pg (28-32)
[2016-12-18] MEDS ORDERED: HEPARIN 10,000 UNITS/10 ML ONE (08:10)
[2016-12-18] MEDS ORDERED: HEPARIN/NS 5000 UNIT/500ML(CATH LAB) 1,000 ML IR ONE (08:10)
[2016-12-18] MEDS ORDERED: NITROGLYCERIN SYRINGE 0 ML ONE (08:11)
[2016-12-18] MEDS ORDERED: XYLOCAINE 2% INFILTRATI ONE (08:11)
[2016-12-18] MEDS ORDERED: SUBLIMAZE ONE (08:11)
[2016-12-18] MEDS ORDERED: VERSED ONE (08:11)
[2016-12-18] MEDS ORDERED: CALAN ONE (08:11)
[2016-12-18] MEDS ORDERED: NACL 0.9% 250ML 250 ML ONE (08:21)
[2016-12-18] MEDS ORDERED: NACL 0.9% 500 ML 500 ML IV SCH (09:00)
--- NOTE | 2016-12-18 09:30 | Short Stay Summary ---
Short Stay Documentation Date of service: 12/18/16 - History H&P: obtained from office - Allergies and Medications Current Medications: Allergies No Known Allergies Allergy (Verified 01/09/14 08:02) Home Medications Medication Instructions Recorded Confirmed Last Taken Type Sevelamer Carbonate [Renvela] 800 mg PO TIDWM 08/20/16 12/18/16 12/17/16 History 800MG Aspirin [Aspirin BABY CHEW TAB] 81 mg PO QDAY tab.chew 08/22/16 12/18/16 06:00 Rx AtorvaSTATin [Lipitor] 20 mg PO DAILY #30 tablet 08/22/16 12/18/16 12/18/16 06: 00 Rx Carvedilol [Coreg] 3.125 mg PO BID #60 tablet 08/22/16 12/18/16 12/18/16 06:00 Rx Furosemide [Lasix TAB] 40 mg PO QDAY #30 tablet 08/22/16 12/18/16 12/18/16 06: 00 Rx Cinacalcet HCl [Sensipar] 60 mg PO DAILY 12/18/16 12/18/16 12/18/16 History 60MG ISOSORBIDE MONOnitrate [Imdur ER] 60 mg PO DAILY 12/18/16 12/18/16 12/18/16 06: 00 History 60MG Lisinopril [Zestril TAB] 20 mg PO QDAY 12/18/16 12/18/16 12/18/16 06:00 History Active Medications Sodium Chloride (Nacl 0.9% 500 Ml) 500 mls @ 50 mls/hr IV DIRECT ABIGAIL Stop: 12/18/16 18:59 - Physical exam General appearance: no acute distress Integumentary: no rash HEENT: Atraumatic Lungs: Clear to auscultation Breasts: deferred Heart: Regular rate Gastrointestinal: normal Male Genitourinary: deferred Female Genitourinary: deferred Rectal Exam: deferred Extremities: no ischemia Neurological: Normal gait - Brief post op/procedure progress note Date of procedure: 12/18/16 Pre-op diagnosis: Shortness of breath Post-op diagnosis: same Procedure: LHC, LV gram Anesthesia: MAC Findings: See report Surgeon: HARPREET LU Estimated blood loss: none Pathology: none Condition: stable - Hospital course Hospital course: Uneventful - Disposition Condition at discharge: Good Disposition: DISCHARGED TO HOME OR SELFCARE Short Stay Discharge Plan Activity: advance as tolerated Weight Bearing Status: Non-Weight Bearing Diet: low fat, low salt, renal
--- NOTE | 2016-12-18 10:09 | Cardiac Catherization Report ---
ORDERING PHYSICIAN: Dr. Evelina Boston INDICATION FOR PROCEDURE: Cardiomyopathy, shortness of breath, stable angina, [place] class 3. PROCEDURES PERFORMED: 1. Selective left and right coronary angiography. 2. Left ventriculography. DESCRIPTION OF PROCEDURE: After obtaining written consent, the patient was draped using sterile technique. A 2% lidocaine was injected into the right groin. A 5-Guyanese vascular sheath was inserted into the right common femoral artery. A 5-Guyanese JL3.5 catheter was used to selectively engage the left coronary artery. A 5-Guyanese JR4 catheter was used to selectively engage the left coronary artery. A 5-Guyanese pigtail catheter was used to check to perform a left ventriculogram. No complications occurred during the procedure. Hemostasis was achieved at the end of the procedure using 6-Guyanese Angio-Seal device. SPECIMEN REMOVED: None. ESTIMATED BLOOD LOSS: Minimal. FINDINGS: HEMODYNAMICS: Aortic pressure was 137/72, left ventricular systolic pressure 139 mmHg. Left ventricular end-diastolic pressure of 12 mmHg. No significant gradient was noted across the left ventricular outflow tract. CARDIAC STRUCTURES: The left ventricle appears to be mildly dilated. The left ventricular ejection fraction is estimated at 45%. There is mild global left ventricular hypokinesis. No significant mitral regurgitation is noted. CORONARY ANATOMY: 1. This is a right dominant circulation. 2. The left main is angiographically normal. 3. The left anterior descending artery is angiographically normal. 4. The left circumflex artery is angiographically normal. 5. The right coronary artery is angiographically normal. IMPRESSION: 1. Angiographically normal coronary arteries. 2. Mildly dilated and hypokinetic left ventricle with an ejection fraction estimated at 45%. 3. No significant mitral regurgitation. 4. Normal LVEDP measured at 11 mmHg. RECOMMENDATIONS: Follow up in the office, no new recommendations. JOB# [id number] ANTONIA/SADIA
[2016-12-18 11:06] VITALS: BP 147/90
== END 2016-12-18 12:10 | disposition home or self-care (01) ==
LOC: OPU 06:46
PROVIDERS: ATTEND Internal Medicine Cardiovascular Disease
DX: I20.8 Other forms of angina pectoris (principal); E78.5 Hyperlipidemia, unspecified; I12.0 Hypertensive chronic kidney disease with stage 5 chronic kidney disease or end stage renal disease; N18.6 End stage renal disease; J45.909 Unspecified asthma, uncomplicated; Z99.2 Dependence on renal dialysis; Z79.899 Other long term (current) drug therapy
CPT/HCPCS: 36415; 80048; 85025; 85610; 93005; 93010; 93458; C1760; J1644; J2250; J3010; J7050; Q9967